=== PATIENT | female | born 1990 | race Caucasian/White ===

== ENCOUNTER 2017-10-26 20:19 | Emergency (ER) | payer SELFPAY ==
[2017-10-26 20:52] VITALS: BP 111/76
--- NOTE | 2017-10-26 21:40 | XRay Report ---
FINAL REPORT PROCEDURE: XR RIBS BILAT W/PA CHEST 4+V TECHNIQUE: Bilateral rib radiographs, minimum of 4 views, including PA projection. CPT 89553 HISTORY: chest pain, Chest pain 786.50 COMPARISON: No prior studies are available for comparison. FINDINGS: Heart: Normal . Mediastinum/Vessels: Normal . Lungs: Normal . Pleural space: Normal . Pneumothorax: None . Bony thorax/ribs: No acute or displaced rib fractures. IMPRESSION: No fracture or focal osseous lesion is seen
[2017-10-27] MEDS ORDERED: ULTRAM PO ONE (01:29)
--- NOTE | 2017-10-27 01:29 | Emergency Department Report ---
ED General Adult HPI - General Chief complaint: Chest Pain Stated complaint: CP Time Seen by Provider: 10/27/17 01:01 Source: patient Mode of arrival: Ambulatory Limitations: No Limitations - History of Present Illness Initial comments: Patient is a 27-year-old female who presents for right chest wall pain intermittent 2 weeks patient states moderate caffeine intake denies shortness of breath no dizziness no nausea vomiting no lightheadedness no shortness of breath no history of breast mass or fibrocystic breast Onset/Timin -: Gradual, week(s) Location: chest Radiation: non-radiation Severity scale (0 -10): 4 Quality: sharp Consistency: intermittent Improves with: none Worsens with: movement, other (deep breathing ) Associated Symptoms: chest pain (chest wall tenderness ). denies: cough, fever/ chills, malaise, nausea/vomiting, shortness of breath, syncope, weakness Treatments Prior to Arrival: none - Related Data Previous Rx's Medication Instructions Recorded Last Taken Type Ibuprofen 800 mg PO TID #30 tablet 10/27/17 Unknown Rx Allergies Allergy/AdvReac Type Severity Reaction Status Date / Time No Known Allergies Allergy Unverified 10/26/17 20:52 ED Review of Systems ROS: Stated complaint: CP Other details as noted in HPI Constitutional: denies: chills, fever Eyes: denies: eye pain, eye discharge, vision change ENT: denies: ear pain, throat pain Respiratory: other (chest wall pain ). denies: cough, shortness of breath, wheezing Cardiovascular: denies: chest pain, palpitations Endocrine: no symptoms reported Gastrointestinal: denies: abdominal pain, nausea, diarrhea Genitourinary: denies: urgency, dysuria, discharge Musculoskeletal: denies: back pain, joint swelling, arthralgia Skin: denies: rash, lesions Neurological: denies: headache, weakness, paresthesias Psychiatric: denies: anxiety, depression Hematological/Lymphatic: denies: easy bleeding, easy bruising ED Past Medical Hx - Past Medical History Previous Medical History?: No - Surgical History Past Surgical History?: No - Social History Smoking Status: Current Every Day Smoker - Medications Home Medications: Home Medications Medication Instructions Recorded Confirmed Last Taken Type Ibuprofen 800 mg PO TID #30 tablet 10/27/17 Unknown Rx ED Physical Exam - General Limitations: No Limitations General appearance: alert, in no apparent distress - Head Head exam: Present: atraumatic, normocephalic - Eye Eye exam: Present: normal appearance - ENT ENT exam: Present: mucous membranes moist - Neck Neck exam: Present: normal inspection - Respiratory Respiratory exam: Present: normal lung sounds bilaterally, chest wall tenderness. Absent: respiratory distress, wheezes, rales, rhonchi, stridor, accessory muscle use, decreased breath sounds, prolonged expiratory - Cardiovascular Cardiovascular Exam: Present: regular rate, normal rhythm, normal heart sounds. Absent: systolic murmur, diastolic murmur, rubs, gallop - GI/Abdominal GI/Abdominal exam: Present: soft, normal bowel sounds. Absent: distended, tenderness, guarding, rebound, rigid, organomegaly, mass, bruit, pulsatile mass , hernia - Rectal Rectal exam: Present: deferred - Extremities Exam Extremities exam: Present: normal inspection - Back Exam Back exam: Present: normal inspection - Neurological Exam Neurological exam: Present: alert, oriented X3 - Psychiatric Psychiatric exam: Present: normal affect - Skin Skin exam: Present: warm, dry, intact, normal color. Absent: rash ED Course Vital Signs 10/26/17 20:42 Temperature 98.3 F Pulse Rate 17 L Respiratory 16 Rate Blood Pressure 111/76 O2 Sat by Pulse 99 Oximetry ED Medical Decision Making - Radiology Data Radiology results: report reviewed, image reviewed no infiltrate no opacities no fracture, - Medical Decision Making this is chest wall pain contusion there is no crepitus no flail chest no axillary pain no lymph no sob no wheezing, pain is reproducible to palpation, there is no ecchymosis, or swelling Critical care attestation.: If time is entered above; I have spent that time in minutes in the direct care of this critically ill patient, excluding procedure time. ED Disposition Clinical Impression: Chest wall pain Chest wall contusion Qualifiers: Encounter type: initial encounter Laterality: right Qualified Code(s): S20.211A - Contusion of right front wall of thorax, initial encounter Disposition: TO HOME OR SELFCARE Is pt being admited?: No Does the pt Need Aspirin: No Condition: Good Instructions: Chest Pain (ED), Costochondritis (ED) Prescriptions: Ibuprofen 800 mg PO TID #30 tablet Referrals: MARCELLO RICHEY MD [Staff Physician] - 3-5 Days Forms: Work/School Release Form(ED) Time of Disposition: :33
== END 2017-10-27 02:19 | disposition home or self-care (01) ==
LOC: ED 20:19
DX: S20.211A Contusion of right front wall of thorax, initial encounter (principal); F17.200 Nicotine dependence, unspecified, uncomplicated; X58.XXXA Exposure to other specified factors, initial encounter; Y93.89 Activity, other specified; Y92.89 Other specified places as the place of occurrence of the external cause; Y99.8 Other external cause status
CPT/HCPCS: 71111; 93005; 93010